=== PATIENT | male | born 1960 | race Caucasian/White ===

== ENCOUNTER → 2021-06-01 | Outpatient (REF) | payer OTHER ==
[~2021-06-01] MED LIST: ATOR1TAB19 PO; GABA-282 PO; GLIP10TA PO; METF10004 PO; NEXI40CA PO; VITAMIN D
== END ==
LOC: M LAB REF 17:37
PROVIDERS: ATTEND Physician Assistant
DX: C44.300 Unspecified malignant neoplasm of skin of unspecified part of face (principal)

== ENCOUNTER → 2021-08-17 | Outpatient (REF) | payer OTHER | LOC: M LAB REF 11:35 | PROVIDERS: ATTEND Physician Assistant | DX: C44.612 Basal cell carcinoma of skin of right upper limb, including shoulder (principal) ==

== ENCOUNTER → 2021-09-15 | Outpatient (REF) | payer OTHER | LOC: M LAB REF 17:14 | PROVIDERS: ATTEND Dermatology | DX: Z48.02 Encounter for removal of sutures (principal) ==

== ENCOUNTER → 2022-08-23 | Outpatient (REF) | payer OTHER | LOC: M SFHCDERM 17:33 | PROVIDERS: ATTEND Physician Assistant | DX: C44.611 Basal cell carcinoma of skin of unspecified upper limb, including shoulder (principal) ==

== ENCOUNTER → 2022-09-22 | Outpatient (REF) | payer OTHER | LOC: M SFHCDERM 16:52 | PROVIDERS: ATTEND Physician Assistant | DX: C44.612 Basal cell carcinoma of skin of right upper limb, including shoulder (principal) ==